=== PATIENT | female | born 1970 | race Caucasian/White ===

== ENCOUNTER 2021-10-03 10:53 | Observation (INO) ==
--- NOTE | 2021-10-03 11:12 | Emergency Department Note ---
Impression & Plan Atypical chest pain, GERD (gastroesophageal reflux disease), FREDY (obstructive sleep apnea), Hypothyroidism ED Provider Note NAME: FAUSTINO CAMILO AGE: 50 SEX: F : 1970 ARRIVES VIA: Walk-In INFORMANT: Patient, ED PROVIDER(S): Zack Cortez MD Chief Complaint: Chest pain HPI: Patient does present with chest pain which she describes as left-sided had began yesterday and was intermittent in nature. The patient states that standing up makes it feel better compared to sitting. The patient does not take anything for the pain at home. The patient states that her father of an [place] at 60. Patient denies any fevers chills or leg swelling. No prior history of DVT or PE. The patient states that it was initially intermittent but is now more constant left-sided with radiation to left upper extremity. The patient has not had any associated nausea. The patient does not believe she has had necessarily exertional symptoms. Patient does state that she is typically sweaty all the time so unsure as whether or not she has been diaphoretic. Patient denies any numbness tingling or focal weakness. The patient denies any trauma to the chest. Patient is vaccinated for COVID-19 ROS: See HPI for pertinent positives and negatives. A total of 10 systems were reviewed and otherwise negative. Past medical history: See below Surgical history: See below Social history: See below Physical Exam: GENERAL: NAD, wearing a mask, non-toxic. EYE EXAM: Normal conjunctiva. PERRL, no anisocoria and EOM's grossly intact w/o pain. OROPHARYNX: Moist mucus membranes. Grossly normal dentition. NECK: Supple, no nuchal rigidity, no adenopathy, non-tender. No signs of meningismus. LUNGS: Clear to auscultation. Normal chest wall mechanics. HEART: NSR, no MRG. ABDOMEN: Abdomen soft, non-tender, normo-active bowel sounds, no masses, no rebound or guarding. BACK: No CVA TTP. SKIN: No rashes and no bruising. UPPER EXTREMITIES: Upper extremities are grossly normal. LOWER EXTREMITIES: Grossly normal, no edema. NEURO EXAM: A&O x3, cranial nerves II-XII grossly intact, normal speech, moves all 4 extremities on command w/o issue. Differential diagnoses: Cardiac ischemia, aortic dissection, pulmonary embolism, pneumothorax, pneumonia, pericarditis, myocarditis, esophageal rupture, GERD, cholecystitis, pancreatitis, musculoskeletal, as well as other pathologies. Course: Patient was seen and evaluated the bedside. Full history physical exam was performed. EKG interpreted by me Normal sinus rhythm, rate 95, normal intervals, normal axis, T wave version in V2 not in contiguous leads. No obvious ST elevations. Imaging Studies: See Below Cardiac monitoring: An order was placed for continuous cardiac monitoring. The monitor shows a rate of 92 with sinus rhythm. MDM: Patient does present due to concern for atypical chest pain. The patient does have risk factors given her family as well as obesity. Patient's history is somewhat concerning as well. The patient did have blood work completed along with EKG troponin chest x-ray. EKG without signs of acute STEMI. Troponin is not detectable. Patient did have resolution of her chest pain with nitro and aspirin. The patient did receive 3 nitro. Given this I do believe the patient would benefit from further evaluation treatment and observation. I did speak with the on-call hospitalist and a Schreck[place] and the patient was admitted by Dr. Robles. Past Med/Surg History Medical History Depression Family history of heart disease GERD (gastroesophageal reflux disease) Hypothyroidism Hypothyroidism (acquired) FREDY (obstructive sleep apnea) Surgical History History of hysterectomy Family History Father Coronary heart disease Fatal [place] age 60 Grandfather (Paternal) Coronary heart disease Grandmother (Maternal) Coronary heart disease Social History Smoking Status: Former smoker Smoking End Date: smoked couple cigarettes daily x 5 years. Quit 15 years ago; Hx Alcohol Use: No Hx Substance Use: No Feels Safe at Home: Yes Immunizations: Vaccinated for COVID-19 Allergies Allergies Allergy/AdvReac Type Severity Reaction Status Date / Time morphine AdvReac Severe GI SYMPTOMS Verified 10/03/21 11:29 Home Meds Home Medications Medication Instructions Recorded Confirmed ascorbic acid (vitamin C) 500 mg 500 mg PO DAILY 10/03/21 10/03/21 tablet (Vitamin C) bupropion HCl 150 mg 24 hr tablet, 150 mg PO DAILY 10/03/21 10/03/21 extended release bupropion HCl 300 mg 24 hr tablet, 300 mg PO DAILY 10/03/21 10/03/21 extended release cetirizine 10 mg tablet (Zyrtec) 10 mg PO DAILY 10/03/21 10/03/21 cholecalciferol (vitamin D3) 25 1,000 mcg PO DAILY 10/03/21 10/03/21 mcg (1,000 unit) capsule (Vitamin D3) lansoprazole 30 mg capsule,delayed 30 mg PO PM 10/03/21 10/03/21 release levothyroxine 175 mcg tablet 175 mcg PO DAILY 10/03/21 10/03/21 (Levoxyl) [id number]-Ca carb-vit K 1 tab PO DAILY 10/03/21 10/03/21 18 mg iron-400 mcg-500 mg tablet Results & Data (ED) Vital Signs Vital Signs - 24 hr 10/03/21 10:54 10/03/21 12:55 10/03/21 12:58 Temperature 36.3 C L Temperature Source Temporal Artery Scan Pulse Rate 99 H 82 Respiratory Rate 20 22 Respiratory Effort / Characteristics Non-Labored Spontaneous Respiratory Depth Normal Blood Pressure 178/118 H Blood Pressure Mean 138 Blood Pressure Position Sitting Pulse Oximetry 98 Oxygen Delivery Method Room Air Room Air Sepsis Recent Fever Within 48 Hours No Sepsis New/Unexplained Change in Mental Status No Sepsis Action Taken by Nursing No Action Required 10/03/21 13:00 10/03/21 13:30 10/03/21 14:00 Temperature Temperature Source Pulse Rate 77 75 84 Respiratory Rate 20 18 23 Respiratory Effort / Characteristics Respiratory Depth Blood Pressure 115/74 130/83 Blood Pressure Mean 87 98 Blood Pressure Position Pulse Oximetry 97 Oxygen Delivery Method Sepsis Recent Fever Within 48 Hours Sepsis New/Unexplained Change in Mental Status Sepsis Action Taken by Shelter Medications Current Medication List: was personally reviewed by me Laboratory Data Attestation: I reviewed the patient's lab results. Result diagrams: 10/03/21 12:36 10/03/21 12:36 Lab Results 10/03/21 10/03/21 10/03/21 Range/Units 12:36 12:36 12:36 WBC 7.12 (4.8-10.8) K/uL RBC 4.63 (4.2-5.4) M/uL Hgb 14.4 (12.0-16.0) g/dL Hct 39.6 (37-47) % MCV 85.5 (80-100) fL MCH 31.1 (25-34) pg MCHC 36.4 H (32-36) g/dL RDW Std Deviation 38.8 (36.4-46.3) fL RDW Coeff of Naty 12.4 (11.5-14.5) % Plt Count 334 (130-400) K/uL MPV 10.0 (7.4-10.4) fL Immature Gran % (Auto) 0.1 % Neut % (Auto) 51.5 % Lymph % (Auto) 37.1 % [place] % (Auto) 7.2 % Eos % (Auto) 3.5 % Baso % (Auto) 0.6 % Neut # (Auto) 3.67 (1.4-6.5) K/uL Lymph # (Auto) 2.64 (1.2-3.4) K/uL [place] # (Auto) 0.51 (0.11-0.59) K/uL Eos # (Auto) 0.25 (0-0.5) K/uL Baso # (Auto) 0.04 (0-0.2) K/uL Immature Gran # (Auto) 0.01 (0.00-0.02) K/uL D-Dimer < 190 (0-500) ug/L FEU Sodium 141 (136-145) mmol/L Potassium 3.6 (3.5-5.1) mmol/L Chloride 109 H (98-107) mmol/L Carbon Dioxide 26 (21-32) mmol/L Anion Gap 6.0 (3-11) BUN 10 (7-18) mg/dl Creatinine 0.60 (0.6-1.2) mg/dl Est Cr Clr Drug Dosing 128.1 ml/min Est GFR ( Amer) 123.2 ml/min Est GFR (Non-Af Amer) 106.3 ml/min BUN/Creatinine Ratio 16.5 (10-20) Glucose 84 (70-99) mg/dl Calcium 9.2 (8.5-10.1) mg/dl Total Bilirubin 0.3 (0.2-1) mg/dl AST 18 (15-37) U/L ALT 45 (12-78) U/L Alkaline Phosphatase 127 H (45-117) U/L Troponin I < 0.015 (0-0.045) ng/ml Total Protein 7.9 (6.4-8.2) gm/dl Albumin 3.8 (3.4-5.0) gm/dl Globulin 4.1 H (2.5-4.0) gm/dl Albumin/Globulin Ratio 0.9 (0.9-2) Lipase 130 (73-393) U/L SARS-CoV-2, RNA, NAAT (NEGATIVE) 10/03/21 Range/Units 13:40 WBC (4.8-10.8) K/uL RBC (4.2-5.4) M/uL Hgb (12.0-16.0) g/dL Hct (37-47) % MCV (80-100) fL MCH (25-34) pg MCHC (32-36) g/dL RDW Std Deviation (36.4-46.3) fL RDW Coeff of Naty (11.5-14.5) % Plt Count (130-400) K/uL MPV (7.4-10.4) fL Immature Gran % (Auto) % Neut % (Auto) % Lymph % (Auto) % [place] % (Auto) % Eos % (Auto) % Baso % (Auto) % Neut # (Auto) (1.4-6.5) K/uL Lymph # (Auto) (1.2-3.4) K/uL [place] # (Auto) (0.11-0.59) K/uL Eos # (Auto) (0-0.5) K/uL Baso # (Auto) (0-0.2) K/uL Immature Gran # (Auto) (0.00-0.02) K/uL D-Dimer (0-500) ug/L FEU Sodium (136-145) mmol/L Potassium (3.5-5.1) mmol/L Chloride (98-107) mmol/L Carbon Dioxide (21-32) mmol/L Anion Gap (3-11) BUN (7-18) mg/dl Creatinine (0.6-1.2) mg/dl Est Cr Clr Drug Dosing ml/min Est GFR ( Amer) ml/min Est GFR (Non-Af Amer) ml/min BUN/Creatinine Ratio (10-20) Glucose (70-99) mg/dl Calcium (8.5-10.1) mg/dl Total Bilirubin (0.2-1) mg/dl AST (15-37) U/L ALT (12-78) U/L Alkaline Phosphatase (45-117) U/L Troponin I (0-0.045) ng/ml Total Protein (6.4-8.2) gm/dl Albumin (3.4-5.0) gm/dl Globulin (2.5-4.0) gm/dl Albumin/Globulin Ratio (0.9-2) Lipase (73-393) U/L SARS-CoV-2, RNA, NAAT NEGATIVE (NEGATIVE) Administered Medications Nitroglycerin (Nitroglycerin Sl 0.4 Mg/Tab Tab) 0.4 mg SL UD PRN PRN Reason: Chest Pain Stop: 11/02/21 11:31 Last Admin: 10/03/21 12:43 Dose: 0.4 mg Documented by: [id number] Discontinued Medications Acetaminophen (Acetaminophen 500 Mg Tab) 1,000 mg PO NOW STA Stop: 10/03/21 11:33 Last Admin: 10/03/21 12:42 Dose: 1,000 mg Documented by: [id number] Aspirin (Aspirin Chew 324 Mg) 324 mg PO NOW STA Stop: 10/03/21 11:33 Last Admin: 10/03/21 12:42 Dose: 324 mg Documented by: [id number] Sodium Chloride (Nss) 500 mls @ 999 mls/hr IV .Q31M STA Stop: 10/03/21 12:02 Last Infusion: 10/03/21 15:07 Dose: 0 mls/hr Documented by: [id number] Admin: 10/03/21 12:42 Dose: 999 mls/hr Documented by: [id number] Nitroglycerin (Nitroglycerin Sl 0.4 Mg/Tab Tab) 0.4 mg SL NOW STA Stop: 10/03/21 11:33 Last Admin: 10/03/21 12:42 Dose: 0.4 mg Documented by: [id number] Imaging Data Radiologist's Impression: Chest X-Ray 10/03/21 11:32 SINGLE VIEW CHEST CLINICAL HISTORY: Atypical chest pain. FINDINGS: An AP, portable, upright chest radiograph is obtained. No prior studies are available for comparison at the time of dictation. A hiatal hernia is suspected. The cardiomediastinal silhouette is unremarkable. The lungs and pleural spaces are clear. No pneumothorax is seen. The bony thorax is grossly intact. IMPRESSION: No active disease in the chest. ACT 112: Negative or not required by law. Electronically signed by: Varun Garnica M.D. 10/03/2021 12:00 PM Discharge Plan Visit Data Chief Complaint: Shortness of Breath/Dyspnea Stated Complaint: CHEST DISCOMFORT/L ARM DISCOMFORT/SOB ED Provider: Zack Cortez Discharge Problem: Atypical chest pain, GERD (gastroesophageal reflux disease), FREDY (obstructive sleep apnea), Hypothyroidism Patient Disposition: Admitted As Inpatient Forms Stand Alone Forms: [facility] Prescriptions Prescriptions: No Action levothyroxine [Levoxyl] 175 mcg tablet 175 mcg PO DAILY RF: 0 ascorbic acid (vitamin C) [Vitamin C] 500 mg Tablet 500 mg PO DAILY RF: 0 lansoprazole 30 mg capsule,delayed release(DR/EC) 30 mg PO PM RF: 0 cholecalciferol (vitamin D3) [Vitamin D3] 25 mcg (1,000 unit) Capsule 1,000 mcg PO DAILY RF: 0 bupropion HCl 300 mg tablet extended release 24 hr 300 mg PO DAILY RF: 0 Women's Multivitamin 18 mg iron-400 mcg-500 mg Tablet 1 tab PO DAILY RF: 0 cetirizine [Zyrtec] 10 mg Tablet 10 mg PO DAILY RF: 0 bupropion HCl 150 mg tablet extended release 24 hr 150 mg PO DAILY RF: 0 Referrals Referrals: PCP,NO [Physician] -
[2021-10-03] MEDS ORDERED: ASPIRIN CHEW 324 MG PO STA (11:32)
[2021-10-03] MEDS ORDERED: ACETAMINOPHEN 500 MG TAB PO STA (11:32)
[2021-10-03] MEDS ORDERED: SODIUM CHLORIDE 0.9% 500 ML IV STA (11:32)
[2021-10-03] MEDS ORDERED: NITROGLYCERIN SL 0.4 MG/TAB TAB SL PRN ×2 (11:32→18:01)
[2021-10-03] MEDS ORDERED: NITROGLYCERIN SL 0.4 MG/TAB TAB SL STA (11:32)
--- NOTE | 2021-10-03 12:01 | XRay Report ---
SINGLE VIEW CHEST CLINICAL HISTORY: Atypical chest pain. FINDINGS: An AP, portable, upright chest radiograph is obtained. No prior studies are available for c omparison at the time of dictation. A hiatal hernia is suspected. The cardiomediastinal silhouette is unremarkable. The lungs and pleural spaces are clear. No pneumothorax is seen. The bony thorax is gr ossly intact. IMPRESSION: No active disease in the chest. ACT 112: Negative or not required by law. Electronically signed by: Varun Garnica M.D. 10/03/2021 12:00 PM
[2021-10-03 12:47] LABS: Basophils # (auto) 0.04 K/uL (0-0.2); Basophils % (auto) 0.6 %; Eosinophils # (auto) 0.25 K/uL (0-0.5); Eosinophils % (auto) 3.5 %; Hematocrit (blood only) 39.6 % (37-47); Hemoglobin 14.4 g/dL (12.0-16.0); Immature Granulocytes # (auto) 0.01 K/uL (0.00-0.02); Immature Granulocytes % (auto) 0.1 %; Lymphocytes # (auto) 2.64 K/uL (1.2-3.4); Lymphocytes % (auto) 37.1 %; Mean Corpuscular Hemoglobin 31.1 pg (25-34); Mean Corpuscular Hgb Conc 36.4 g/dL (32-36); Mean Corpuscular Volume 85.5 fL (80-100); Monocytes # (auto) 0.51 K/uL (0.11-0.59); Monocytes % (auto) 7.2 %; Neutrophils # (auto) 3.67 K/uL (1.4-6.5); Neutrophils % (auto) 51.5 %; Platelet Count 334 K/uL (130-400); RDW Coefficient of Variation 12.4 % (11.5-14.5); RDW Standard Deviation 38.8 fL (36.4-46.3); Red Blood Count 4.63 M/uL (4.2-5.4); White Blood Count 7.12 K/uL (4.8-10.8)
[2021-10-03 13:05] LABS: D Dimer < 190 ug/L FEU (0-500)
[2021-10-03 13:13] LABS: Alanine Aminotransferase 45 U/L (12-78); Albumin Level 3.8 gm/dl (3.4-5.0); Aspartate Aminotransferase 18 U/L (15-37); BUN Creatinine Ratio 16.5 (10-20); Blood Urea Nitrogen 10 mg/dl (7-18); Calcium 9.2 mg/dl (8.5-10.1); Carbon Dioxide 26 mmol/L (21-32); Chloride 109 mmol/L (98-107); Creatinine Clr Calc Pharmacy 128.1 ml/min; Est GFR (African American) 123.2 ml/min; Est GFR (Non-African American) 106.3 ml/min; Glucose 84 mg/dl (70-99); Lipase 130 U/L (73-393); Potassium 3.6 mmol/L (3.5-5.1); Sodium 141 mmol/L (136-145)
[2021-10-03 13:18] LABS: Albumin Globulin Ratio 0.9 (0.9-2); Alkaline Phosphatase 127 U/L (45-117); Bilirubin,Total 0.3 mg/dl (0.2-1); Globulin 4.1 gm/dl (2.5-4.0); Total Protein 7.9 gm/dl (6.4-8.2); Troponin I < 0.015 ng/ml (0-0.045)
--- NOTE | 2021-10-03 14:19 | Electrocardiogram Report ---
Test Reason : Blood Pressure : / mmHG Vent. Rate : 095 BPM Atrial Rate : 095 BPM P-R Int : 150 ms QRS Dur : 096 ms QT Int : 370 ms P-R-T Axes : 026 058 030 degrees QTc Int : 464 ms Normal sinus rhythm Nonspecific T wave abnormality Incomplete right bundle branch block Prolonged QT Abnormal ECG When compared with ECG of 11-JAN-2016 09:58, No significant change was found Confirmed by Herson Fleming ([id number]) on 10/03/2021 2:18:51 PM Referred By: REFERRED SELF Confirmed By:Sergey Fleming
--- NOTE | 2021-10-03 14:21 | History & Physical Report ---
Date of Service October 03, 2021 Assessment & Plan (1) Chest pain: Plan: Patient is 50-year-old female with PMH of FREDY, GERD, depression, hypothyroidism presented to ER with C/O CP. Last night she started with chest tightness. This morning she woke up with chest tightness and discomfort to left-sided chest radiating to left arm with associated dizziness. In ER patient afebrile, P: 99, R: 20, BP 178/118, 98% on room air, no leukocytosis, negative D-dimer, negative initial troponin. Chest x-ray unremarkable. EKG: Sinus rhythm, T wave inversion in septal leads, T wave flattening in anterior leads. Prior EKG from 2016 with T wave inversion septal leads. CHEST PAIN R/O ACS. Risk factors: FH. DDX: hypertensive emergency In ER Was given 3 sublingual nitroglycerin with resolution of chest discomfort. Given 324mg aspirin Repeat BP down to 129/87. Monitor Repeat EKG in am Will trend troponin Echo Lipid panel in am Start daily aspirin Nitro prn CP and repeat EKG for CP NPO midnight Cardiology consult (2) FREDY (obstructive sleep apnea): Plan: CPAP HS (3) Depression: Plan: Continue bupropion (4) Hypothyroidism: Plan: Continue levothyroxine TSH in am (5) GERD (gastroesophageal reflux disease): Plan: Continue PPI DVT Prophylaxis SCDs Full Code Follows with Dr Cuba for routine care Pt was seen and care coordinated with Dr Robles. See addendum History of Present Illness Chief Complaint: Chest pain Primary Care Provider: Ansley Gaytan PA-C Patient is 50-year-old female with PMH of FREDY, GERD, depression, hypothyroidism presented to ER with complaint of chest pain. Patient states past month has been having intermittent chest tightness that resolves in a few minutes. It can occur with with sitting or ambulation. She reports last night she started with chest tightness and started with discomfort to left side chest that she thought may be GERD. This morning she woke up with chest tightness and discomfort to left-side chest radiating to left arm with associated dizziness. She denies shortness of breath, diaphoresis, palpitations. Denies fever/chills, diaphoresis, N/V/D/C, MANZANARES, syncope, vision changes, neck pain, orthopnea, cough, sore throat, choking, otalgia, rhinorrhea, abdominal pain, paresthesias, weakness, extremity weakness, extremity edema, rashes, urinary symptoms. Family history: Father fatal [place] age 60, paternal grandfather history [place], maternal grandmother history [place] In ER patient afebrile, P: 99, R: 20, BP 178/118, 98% on room air, no leukocytosis, negative D-dimer, negative initial troponin. Chest x-ray unremarkable. EKG: Sinus rhythm, T wave inversion in septal leads, T wave flattening in anterior leads. Was given 3 sublingual nitroglycerin with resolution of chest discomfort. Allergies Allergy/AdvReac Type Severity Reaction Status Date / Time morphine AdvReac Severe GI SYMPTOMS Verified 10/03/21 11:29 Home Medications Medication Instructions Recorded Confirmed Type ascorbic acid (vitamin C) 500 mg 500 mg PO DAILY 10/03/21 10/03/21 History tablet (Vitamin C) bupropion HCl 150 mg 24 hr tablet, 150 mg PO DAILY 10/03/21 10/03/21 History extended release bupropion HCl 300 mg 24 hr tablet, 300 mg PO DAILY 10/03/21 10/03/21 History extended release cetirizine 10 mg tablet (Zyrtec) 10 mg PO DAILY 10/03/21 10/03/21 History cholecalciferol (vitamin D3) 25 1,000 mcg PO DAILY 10/03/21 10/03/21 History mcg (1,000 unit) capsule (Vitamin D3) lansoprazole 30 mg capsule,delayed 30 mg PO PM 10/03/21 10/03/21 History release levothyroxine 175 mcg tablet 175 mcg PO DAILY 10/03/21 10/03/21 History (Levoxyl) renzxwsv-ekx-dcgd-FA-Ca carb-vit K 1 tab PO DAILY 10/03/21 10/03/21 History 18 mg iron-400 mcg-500 mg tablet Past Med/Surg History Medical History Depression Family history of heart disease GERD (gastroesophageal reflux disease) Hypothyroidism Hypothyroidism (acquired) FREDY (obstructive sleep apnea) Surgical History History of hysterectomy Family History Father Coronary heart disease Fatal [place] age 60 Grandfather (Paternal) Coronary heart disease Grandmother (Maternal) Coronary heart disease Social History Smoking Status: Never smoker Smoking End Date: smoked couple cigarettes daily x 5 years. Quit 15 years ago; Hx Alcohol Use: No Hx Substance Use: No Communication Ability: Effective Beliefs That Will Affect Care: None Current Living Situation: Spouse Feels Safe at Home: Yes Safety Concerns: Feels Safe At This Time Review of Systems Review of Systems: All systems reviewed & are unremarkable except as noted in HPI & below Physical Exam Physical Exam: General: no distress, obese Head: normocephalic, atraumatic Eyes: PERRL, EOM's intact, conjunctiva non-injected, anicteric ENT: normal inspection external ears, nose, mucous membranes moist Neck: supple, trachea midline Lungs: clear, no respiratory distress, no wheezing/rhonchi/rales CV: RRR, no murmur, no pretibial edema Abd: normal BS, soft, non-tender Ext: no cyanosis, no calf tenderness Neuro: A&O x 3, no focal deficits noted, normal affect Skin: warm, dry Results & Data Results & Data ([facility]) Vital Signs (Past 12 Hours) Vital Signs Temp Pulse Resp BP Pulse Ox 10/03/21 10:54 36.3 C L 99 H 20 178/118 H 98 Laboratory Results Short CBC 10/03/21 Range/Units 12:36 WBC 7.12 (4.8-10.8) K/uL Hgb 14.4 (12.0-16.0) g/dL Hct 39.6 (37-47) % Plt Count 334 (130-400) K/uL BMP 10/03/21 12:36 Sodium 141 Potassium 3.6 Chloride 109 H Carbon Dioxide 26 BUN 10 Creatinine 0.60 Glucose 84 Calcium 9.2 Cardiac Enzymes 10/03/21 Range/Units 12:36 Troponin I < 0.015 (0-0.045) ng/ml Liver Function 10/03/21 Range/Units 12:36 Total Bilirubin 0.3 (0.2-1) mg/dl AST 18 (15-37) U/L ALT 45 (12-78) U/L Alkaline Phosphatase 127 H (45-117) U/L Albumin 3.8 (3.4-5.0) gm/dl Diagnostic Findings Chest X-Ray 10/03/21 11:32 SINGLE VIEW CHEST CLINICAL HISTORY: Atypical chest pain. FINDINGS: An AP, portable, upright chest radiograph is obtained. No prior studies are available for comparison at the time of dictation. A hiatal hernia is suspected. The cardiomediastinal silhouette is unremarkable. The lungs and pleural spaces are clear. No pneumothorax is seen. The bony thorax is grossly intact. IMPRESSION: No active disease in the chest. ACT 112: Negative or not required by law. Electronically signed by: Varun Garnica M.D. 10/03/2021 12:00 PM Supervising Physician Co-Signing Physician Notes Patient is a 50-year-old female with history of hypothyroidism and other medical problems presents with history of chest pain radiating to left upper extremity. Chest pain resolved with nitroglycerin while in ED. She reports associated shortness of breath, diaphoresis and palpitations. Please review HPI for complete details of presentation. Initial troponin negative. EKG showed nonspecific T wave abnormality, incomplete right bundle branch block. On exam patient is obese, no apparent distress, normocephalic atraumatic, lungs are clear to auscultation, normal breath sounds, S1-S2, no murmur, no pedal edema, abdomen soft, nontender, normal bowel sounds, alert, awake, oriented, grossly no focal deficits. Patient is admitted for management of chest pain rule out ACS. Blood pressure elevated while in ED which improved later. Will obtain blood panel, echo, trend cardiac enzymes and repeat EKG in the morning. Will consult cardiology for further input. I personally reviewed the record. Patient is interviewed and examined at bedside. Patient's care is coordinated with Sara Triana PA-C. Please refer to the documentation above for details of patient's presentation and for discussion of other issues.
[2021-10-03] MEDS ORDERED: ACETAMINOPHEN 325 MG TAB PO PRN (18:01)
[2021-10-03] MEDS ORDERED: PANTOprazole 40 MG TAB PO SCH (21:00)
[2021-10-04 07:35] LABS: Hematocrit (blood only) 39.3 % (37-47); Hemoglobin 13.8 g/dL (12.0-16.0); Mean Corpuscular Hemoglobin 30.4 pg (25-34); Mean Corpuscular Hgb Conc 35.1 g/dL (32-36); Mean Corpuscular Volume 86.6 fL (80-100); Mean Platelet Volume 10.1 fL (7.4-10.4); Platelet Count 302 K/uL (130-400); RDW Coefficient of Variation 12.5 % (11.5-14.5); RDW Standard Deviation 39.7 fL (36.4-46.3); Red Blood Count 4.54 M/uL (4.2-5.4); White Blood Count 6.73 K/uL (4.8-10.8)
[2021-10-04 08:10] LABS: BUN Creatinine Ratio 18.4 (10-20); Calcium 8.9 mg/dl (8.5-10.1); Creatinine Clr Calc Pharmacy 125.8 ml/min; Est GFR (African American) 122.5 ml/min; Est GFR (Non-African American) 105.7 ml/min; Potassium 3.6 mmol/L (3.5-5.1)
[2021-10-04 08:20] LABS: Thyroid Stimulating Hormone 0.011 uIu/ml (0.300-4.500)
--- NOTE | 2021-10-04 08:38 | Cardiology Consultation ---
Date of Consultation October 04, 2021 Assessment & Plan (1) Atypical chest pain: (2) FREDY (obstructive sleep apnea): (3) GERD (gastroesophageal reflux disease): (4) Family history of heart disease: (5) Hypertension: Patient admitted for chest pain radiating to her left arm, resolving with SL nitro in the ER and concerning for angina. Her Blood pressure was significantly elevated on arrival, but trended down without intervention. Currently well controlled this morning. EKG on arrival demonstrated mild flattening of ST/T wave in inferior leads but no acute ST/T wave elevation or depression. Cardiac enzymes negative x3 She has remained symptom free over night and into this morning. She is concerned with her family history and father passing away age 60 of sudden VT. No prior cardiac testing or ischemic work up. Recommend proceeding with exercise stress echo this morning to r/o inducible ischemia. Her resting echo demonstrated normal LVEF without wall motion abnormalities. Further recommendations pending review of exercise stress echo. Case discussed with Dr. Stanley Supervising Physician Co-Signing Physician Notes Supervising Physician Attestation: I have personally performed a history and physical examination on the patient. I agree with the physician residential living assistant's findings and plan as documented with the following additions. Subjective: Patient feeling well at the time of my assessment. Patient seen prior to, during, and post exercise stress echocardiogram. Exam: Regular rhythm, no murmurs Data: Resting echo revealed borderline concentric left ventricular hypertrophy, grade 1 diastolic dysfunction, normal resting wall motion, normal LVEF. Stress echocardiogram was negative for inducible ischemia having exercised into the third stage of a Yosvany protocol. Borderline hypertensive response noted. Assessment and Plan: Chest discomfort with negative EKG, negative serial troponin levels, nonischemic stress echocardiogram Family history of coronary heart disease Elevated blood pressure without diagnosis of hypertension -The patient's systolic blood pressure was in the 170s on initial presentation. She received 2 doses of nitroglycerin with palliation of chest discomfort and improvement in her blood pressure. Her stress test reassuring, however borderline hypertensive response was noted. Her blood pressure first thing this morning was 123/75. Per review of her outpatient chart, historically her blood pressure has been well controlled. Her most recent lipid panel took place in November 2020 as an outpatient with LDL cholesterol 105 mg/dL at that time. -I believe the stress echocardiogram is reassuring. Recommend ongoing heart healthy lifestyle, risk factor modification. -Based on her recent and historical blood pressures, I am inclined to continue to watch things without adding an antihypertensive at present. Future considerations include perhaps adding an angiotensin receptor jagdeep or amlodipine. -Recommend follow-up with primary care. -Patient stable for discharge from a cardiac perspective. Farrukh Stanley, DO History of Present Illness Reason for Consultation: Chest pain Requesting Physician: Dr. Robles Attending Physician: Dr. Mays History of Present Illness Patient is a 50 year old female with history of FREDY, GERD, hypothyroidism, who presents to [facility] with complaints of chest pain. Friday night late patient noted intermittent sharp/stabbing chest pain under her left breast. Symptoms resolved and she went to bed in normal state of health. Friday she woke up and felt fatigued, but denied any chest pain. She reports her daughter forgot her lunch and she rushed it to the school and returned home. Upon returning home, patient felt substernal chest tightness, across her chest, described as a heaviness or "someone sitting on my chest". Symptoms radiated down her left arm. She decided to take a shower and relax. After showering, her symptoms persisted and she felt SOB, like she had just "run a marathon" but didn't do anything strenuous. She contacted her and they came to the ER for evaluation. Upon arrival in ER, her BP was significantly elevated. She denied history of elevated BP in the past and does not take any antihypertensive therapy. EKG in the ER demonstrated mild T wave flattening in inferior and septal leaves, but no ST depression or elevation or significant change from prior EKG in 2019. She was given SL nitro and symptoms improved after 2 doses. Her cardiac enzymes have been unremarkable x3. BP trended down upon admission as well. Other labs un remarkable, other than low TSH, consistent with her history of thyroid disorders. At time of consult, patient resting out of bed comfortably. No recurrent chest pain since admission. BP at baseline this morning. She denies acute complaints but is concerned with her symptoms yesterday. This was the first time she has experienced any chest pain that was significant. She denies recent chest pain wi th exertion or changes to her functional capacity. She remains active on a regular basis. 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 No known cardiac history. No prior echo or stress test. She reports her father had VT and suddenly age 60's. Allergies Allergy/AdvReac Type Severity Reaction Status Date / Time morphine AdvReac Severe GI SYMPTOMS Verified 10/03/21 11:29 Home Medications Medication Instructions Recorded Confirmed Type ascorbic acid (vitamin C) 500 mg 500 mg PO DAILY 10/03/21 10/03/21 History tablet (Vitamin C) bupropion HCl 150 mg 24 hr tablet, 150 mg PO DAILY 10/03/21 10/03/21 History extended release bupropion HCl 300 mg 24 hr tablet, 300 mg PO DAILY 10/03/21 10/03/21 History extended release cetirizine 10 mg tablet (Zyrtec) 10 mg PO DAILY 10/03/21 10/03/21 History cholecalciferol (vitamin D3) 25 1,000 mcg PO DAILY 10/03/21 10/03/21 History mcg (1,000 unit) capsule (Vitamin D3) lansoprazole 30 mg capsule,delayed 30 mg PO PM 10/03/21 10/03/21 History release levothyroxine 175 mcg tablet 175 mcg PO DAILY 10/03/21 10/03/21 History (Levoxyl) [id number]-FA-Ca carb-vit K 1 tab PO DAILY 10/03/21 10/03/21 History 18 mg iron-400 mcg-500 mg tablet Patient History Medical History (Updated 10/04/21 @ 10:30 by Thelma Bustillo PA-C) Depression Family history of heart disease GERD (gastroesophageal reflux disease) Hypothyroidism Hypothyroidism (acquired) FREDY (obstructive sleep apnea) Surgical History History of hysterectomy Family History Father Coronary heart disease Fatal VT age 60 Grandfather (Paternal) Coronary heart disease Grandmother (Maternal) Coronary heart disease Social History Smoking Status: Never smoker Smoking End Date: smoked couple cigarettes daily x 5 years. Quit 15 years ago; Hx Alcohol Use: No Hx Substance Use: No Communication Ability: Effective Beliefs That Will Affect Care: None Current Living Situation: Spouse Feels Safe at Home: Yes Safety Concerns: Feels Safe At This Time Assistive Devices: None Review of Systems Review of Systems: All systems reviewed & are unremarkable except as noted in HPI & below Physical Exam Constitutional: WD/WN, vitals as above well nourished and + obese; no acute distress Eyes: PERRL, conjunctivae normal, anicteric sclerae Neck: trachea midline, no thyromegaly Respiratory: normal respiratory effort, lungs clear to auscultation Cardiovascular: RRR, no murmur, no edema Gastrointestinal (Abdomen): normal bowel sounds, soft, nontender, no hepatosplenomegaly Musculoskeletal: no cyanosis or clubbing, extremities motor strength 5/5 Skin: no rashes, warm and dry Neurologic: PERRL, EOMI, accommodation nl, no face palsy, no dysarthria Psychiatric: A+Ox3, euthymic affect Results & Data ([facility]) Vital Signs (Past 12 Hours) Vital Signs Temp Pulse Pulse Resp BP Pulse Ox 10/04/21 07:10 36.8 C 73 18 123/75 96 10/04/21 03:14 36.6 C 80 18 117/60 95 10/04/21 01:54 84 10/03/21 23:45 17 94 10/03/21 22:57 36.6 C 82 18 134/74 95 10/03/21 20:42 36.4 C L 90 18 130/71 96 Laboratory Results 10/04/21 10/04/21 10/04/21 Range/Units 06:44 06:44 00:56 WBC 6.73 (4.8-10.8) K/uL RBC 4.54 (4.2-5.4) M/uL Hgb 13.8 (12.0-16.0) g/dL Hct 39.3 (37-47) % MCV 86.6 (80-100) fL MCH 30.4 (25-34) pg MCHC 35.1 (32-36) g/dL RDW Std Deviation 39.7 (36.4-46.3) fL RDW Coeff of Naty 12.5 (11.5-14.5) % Plt Count 302 (130-400) K/uL MPV 10.1 (7.4-10.4) fL Immature Gran % (Auto) % Neut % (Auto) % Lymph % (Auto) % [place] % (Auto) % Eos % (Auto) % Baso % (Auto) % Neut # (Auto) (1.4-6.5) K/uL Lymph # (Auto) (1.2-3.4) K/uL [place] # (Auto) (0.11-0.59) K/uL Eos # (Auto) (0-0.5) K/uL Baso # (Auto) (0-0.2) K/uL Immature Gran # (Auto) (0.00-0.02) K/uL D-Dimer (0-500) ug/L FEU Sodium 143 (136-145) mmol/L Potassium 3.6 (3.5-5.1) mmol/L Chloride 109 H (98-107) mmol/L Carbon Dioxide 25 (21-32) mmol/L Anion Gap 9.0 (3-11) BUN 11 (7-18) mg/dl Creatinine 0.61 (0.6-1.2) mg/dl Est Cr Clr Drug Dosing 125.8 ml/min Est GFR ( Amer) 122.5 ml/min Est GFR (Non-Af Amer) 105.7 ml/min BUN/Creatinine Ratio 18.4 (10-20) Glucose 91 (70-99) mg/dl Calcium 8.9 (8.5-10.1) mg/dl Total Bilirubin (0.2-1) mg/dl AST (15-37) U/L ALT (12-78) U/L Alkaline Phosphatase (45-117) U/L Troponin I < 0.015 (0-0.045) ng/ml Total Protein (6.4-8.2) gm/dl Albumin (3.4-5.0) gm/dl Globulin (2.5-4.0) gm/dl Albumin/Globulin Ratio (0.9-2) Triglycerides 102 (0-150) mg/dl Cholesterol 153 (0-200) mg/dl LDL Cholesterol, Calc 84 mg/dl VLDL Cholesterol, Calc 20 mg/dl HDL Cholesterol 49 mg/dl Cholesterol/HDL Ratio 3 Lipase (73-393) U/L TSH 0.011 L (0.300-4.500) uIu/ml SARS-CoV-2, RNA, NAAT (NEGATIVE) 10/03/21 10/03/21 10/03/21 Range/Units 19:05 13:40 12:36 WBC (4.8-10.8) K/uL RBC (4.2-5.4) M/uL Hgb (12.0-16.0) g/dL Hct (37-47) % MCV (80-100) fL MCH (25-34) pg MCHC (32-36) g/dL RDW Std Deviation (36.4-46.3) fL RDW Coeff of Naty (11.5-14.5) % Plt Count (130-400) K/uL MPV (7.4-10.4) fL Immature Gran % (Auto) % Neut % (Auto) % Lymph % (Auto) % [place] % (Auto) % Eos % (Auto) % Baso % (Auto) % Neut # (Auto) (1.4-6.5) K/uL Lymph # (Auto) (1.2-3.4) K/uL [place] # (Auto) (0.11-0.59) K/uL Eos # (Auto) (0-0.5) K/uL Baso # (Auto) (0-0.2) K/uL Immature Gran # (Auto) (0.00-0.02) K/uL D-Dimer (0-500) ug/L FEU Sodium 141 (136-145) mmol/L Potassium 3.6 (3.5-5.1) mmol/L Chloride 109 H (98-107) mmol/L Carbon Dioxide 26 (21-32) mmol/L Anion Gap 6.0 (3-11) BUN 10 (7-18) mg/dl Creatinine 0.60 (0.6-1.2) mg/dl Est Cr Clr Drug Dosing 128.1 ml/min Est GFR ( Amer) 123.2 ml/min Est GFR (Non-Af Amer) 106.3 ml/min BUN/Creatinine Ratio 16.5 (10-20) Glucose 84 (70-99) mg/dl Calcium 9.2 (8.5-10.1) mg/dl Total Bilirubin 0.3 (0.2-1) mg/dl AST 18 (15-37) U/L ALT 45 (12-78) U/L Alkaline Phosphatase 127 H (45-117) U/L Troponin I < 0.015 < 0.015 (0-0.045) ng/ml Total Protein 7.9 (6.4-8.2) gm/dl Albumin 3.8 (3.4-5.0) gm/dl Globulin 4.1 H (2.5-4.0) gm/dl Albumin/Globulin Ratio 0.9 (0.9-2) Triglycerides (0-150) mg/dl Cholesterol (0-200) mg/dl LDL Cholesterol, Calc mg/dl VLDL Cholesterol, Calc mg/dl HDL Cholesterol mg/dl Cholesterol/HDL Ratio Lipase 130 (73-393) U/L TSH (0.300-4.500) uIu/ml SARS-CoV-2, RNA, NAAT NEGATIVE (NEGATIVE) 10/03/21 10/03/21 Range/Units 12:36 12:36 WBC 7.12 (4.8-10.8) K/uL RBC 4.63 (4.2-5.4) M/uL Hgb 14.4 (12.0-16.0) g/dL Hct 39.6 (37-47) % MCV 85.5 (80-100) fL MCH 31.1 (25-34) pg MCHC 36.4 H (32-36) g/dL RDW Std Deviation 38.8 (36.4-46.3) fL RDW Coeff of Naty 12.4 (11.5-14.5) % Plt Count 334 (130-400) K/uL MPV 10.0 (7.4-10.4) fL Immature Gran % (Auto) 0.1 % Neut % (Auto) 51.5 % Lymph % (Auto) 37.1 % [place] % (Auto) 7.2 % Eos % (Auto) 3.5 % Baso % (Auto) 0.6 % Neut # (Auto) 3.67 (1.4-6.5) K/uL Lymph # (Auto) 2.64 (1.2-3.4) K/uL [place] # (Auto) 0.51 (0.11-0.59) K/uL Eos # (Auto) 0.25 (0-0.5) K/uL Baso # (Auto) 0.04 (0-0.2) K/uL Immature Gran # (Auto) 0.01 (0.00-0.02) K/uL D-Dimer < 190 (0-500) ug/L FEU Sodium (136-145) mmol/L Potassium (3.5-5.1) mmol/L Chloride (98-107) mmol/L Carbon Dioxide (21-32) mmol/L Anion Gap (3-11) BUN (7-18) mg/dl Creatinine (0.6-1.2) mg/dl Est Cr Clr Drug Dosing ml/min Est GFR ( Amer) ml/min Est GFR (Non-Af Amer) ml/min BUN/Creatinine Ratio (10-20) Glucose (70-99) mg/dl Calcium (8.5-10.1) mg/dl Total Bilirubin (0.2-1) mg/dl AST (15-37) U/L ALT (12-78) U/L Alkaline Phosphatase (45-117) U/L Troponin I (0-0.045) ng/ml Total Protein (6.4-8.2) gm/dl Albumin (3.4-5.0) gm/dl Globulin (2.5-4.0) gm/dl Albumin/Globulin Ratio (0.9-2) Triglycerides (0-150) mg/dl Cholesterol (0-200) mg/dl LDL Cholesterol, Calc mg/dl VLDL Cholesterol, Calc mg/dl HDL Cholesterol mg/dl Cholesterol/HDL Ratio Lipase (73-393) U/L TSH (0.300-4.500) uIu/ml SARS-CoV-2, RNA, NAAT (NEGATIVE) Diagnostic Findings Telemetry reviewed - NSR without concerning arrhythmias EKG on admission: NSR with mild T wave flattening in inferior and septal leads. Repeat EKG this morning: NSR, normal EKG Chest xray on admission: IMPRESSION: No active disease in the chest. Medications Administered Current Inpatient Medications Acetaminophen (Acetaminophen 325 Mg Tab) 650 mg PO Q4H PRN PRN Reason: Pain or Fever Stop: 11/02/21 18:00 Aspirin (Aspirin 81 Mg Ectab) [facility] Stop: 11/03/21 08:59 Last Admin: 10/04/21 08:51 Dose: 81 mg Documented by: Bupropion HCl (Bupropion Xl 300 Mg Tabcr) 300 mg PO DAILY [facility] Stop: 11/03/21 08:59 Last Admin: 10/04/21 07:41 Dose: 300 mg Documented by: Bupropion HCl (Bupropion Xl 150 Mg Tabcr) 150 mg PO DAILY [facility] Stop: 11/03/21 08:59 Last Admin: 10/04/21 07:41 Dose: 150 mg Documented by: Cetirizine HCl (Cetirizine Hcl 10 Mg Tablet) 10 mg PO DAILY [facility] Stop: 11/03/21 08:59 Last Admin: 10/04/21 07:41 Dose: 10 mg Documented by: Levothyroxine Sodium (Levothyroxine Sodium 125 Mcg Tablet) 125 mcg PO DAILYBB [facility] Stop: 11/04/21 06:29 Nitroglycerin (Nitroglycerin Sl 0.4 Mg/Tab Tab) 0.4 mg SL UD PRN PRN Reason: Chest Pain Stop: 11/02/21 11:31 Last Admin: 10/03/21 12:43 Dose: 0.4 mg Documented by: Nitroglycerin (Nitroglycerin Sl 0.4 Mg/Tab Tab) 0.4 mg SL UD PRN PRN Reason: Chest Pain Stop: 11/02/21 18:00 Pantoprazole Sodium (Pantoprazole 40 Mg Tab) 40 mg PO PM [facility] Stop: 11/02/21 20:59 Last Admin: 10/03/21 20:48 Dose: 40 mg Documented by: (1) GERD (gastroesophageal reflux disease) Esophagitis presence: esophagitis presence not specified Qualified Code(s): K21.9 - Gastro-esophageal reflux disease without esophagitis
[2021-10-04] MEDS ORDERED: buPROPion XL 300 MG TABCR PO SCH (09:00)
[2021-10-04] MEDS ORDERED: LEVOTHYROXINE SODIUM 175 MCG TABLET PO SCH (09:00)
[2021-10-04] MEDS ORDERED: buPROPion XL 150 MG TABCR PO SCH (09:00)
[2021-10-04] MEDS ORDERED: ASPIRIN 81 MG ECTAB PO SCH (09:00)
[2021-10-04] MEDS ORDERED: CETIRIZINE HCL 10 MG TABLET PO SCH (09:00)
[2021-10-04 10:15] LABS: T4 Free Thyroxine 1.31 ng/dl (0.8-1.6)
--- NOTE | 2021-10-04 12:48 | Hospitalist Progress Note ---
Date of Service October 04, 2021 Assessment & Plan (1) Chest pain: Plan: Patient is 50-year-old female with PMH of FREDY, GERD, depression, hypothyroidism presented to ER with C/O CP. Last night she started with chest tightness. This morning she woke up with chest tightness and discomfort to left-sided chest radiating to left arm with associated dizziness. Chest Pain ACS ruled out --Negative troponin --Stress test nonischemic --ECHO: EF 60 to 65%. Grade 1 diastolic dysfunction. No wall motion abnormality. --CXR:No active disease in the chest. --Appreciate cardiology input -Plan is to monitor blood pressure regularly and consider discussing with primary care physician for possible need for antihypertensives if needed (2) FREDY (obstructive sleep apnea): Plan: CPAP HS (3) Depression: Plan: Continue bupropion (4) Hypothyroidism: Plan: TSH low Free T4 normal Levothyroxine dose decreased today on 150 mcg daily Advised to get repeat thyroid function test in 1 week and consider following with PCP, endocrinology for further adjustment (5) GERD (gastroesophageal reflux disease): Plan: Continue PPI DVT Prophylaxis SCDs Code Status Full Code Admission and Anticipated Discharge Date Admission Date: October 03, 2021 Subjective Patient is seen and examined at bedside Had stress test earlier today Chest pain completely resolved Denies any shortness of breath, dizziness, nausea, abdominal cramps Discussed with cardiology today Plan to be discharged home today. Review of Systems Review of Systems: All systems reviewed & are unremarkable except as noted in Subjective Physical Exam Physical Exam: Physical Exam: Vitals signs as noted above General Appearance:Obese, no apparent distress Head: normocephalic, Atraumatic Eyes: normal inspection, EOMI Neck: supple, Trachea midline Respiratory/Chest: Normal breath sounds, CTA, No accessory muscle use Cardiovascular: S1, S2, No murmur Abdomen/GI:Soft, Non tender, Bowel sounds present Extremities/Musculoskeletal:normal inspection, no edema Neurologic/Psych:AAOX3, grossly no focal neurological deficits Skin: normal color, warm Results & Data Results & Data ([facility]) Vital Signs (Past 12 Hours) Vital Signs Temp Pulse Pulse Resp BP Pulse Ox 10/04/21 10:06 84 10/04/21 07:10 36.8 C 73 18 123/75 96 10/04/21 03:14 36.6 C 80 18 117/60 95 10/04/21 01:54 84 Laboratory Results Short CBC 10/04/21 Range/Units 06:44 WBC 6.73 (4.8-10.8) K/uL Hgb 13.8 (12.0-16.0) g/dL Hct 39.3 (37-47) % Plt Count 302 (130-400) K/uL BMP 10/03/21 10/04/21 12:36 06:44 Sodium 141 143 Potassium 3.6 3.6 Chloride 109 H 109 H Carbon Dioxide 26 25 BUN 10 11 Creatinine 0.60 0.61 Glucose 84 91 Calcium 9.2 8.9 Cardiac Enzymes 10/03/21 10/03/21 10/04/21 Range/Units 12:36 19:05 00:56 Troponin I < 0.015 < 0.015 < 0.015 (0-0.045) ng/ml Liver Function 10/03/21 Range/Units 12:36 Total Bilirubin 0.3 (0.2-1) mg/dl AST 18 (15-37) U/L ALT 45 (12-78) U/L Alkaline Phosphatase 127 H (45-117) U/L Albumin 3.8 (3.4-5.0) gm/dl (1) Hypothyroidism Hypothyroidism type: unspecified Qualified Code(s): E03.9 - Hypothyroidism, unspecified (2) GERD (gastroesophageal reflux disease) Esophagitis presence: esophagitis presence not specified Qualified Code(s): K21.9 - Gastro-esophageal reflux disease without esophagitis
--- NOTE | 2021-10-04 12:59 | Discharge Summary ---
Date of Service October 04, 2021 Admission HPI Per Admitting Provider Patient is 50-year-old female with PMH of FREDY, GERD, depression, hypothyroidism presented to ER with complaint of chest pain. Patient states past month has been having intermittent chest tightness that resolves in a few minutes. It can occur with with sitting or ambulation. She reports last night she started with chest tightness and started with discomfort to left side chest that she thought may be GERD. This morning she woke up with chest tightness and discomfort to left-side chest radiating to left arm with associated dizziness. She denies shortness of breath, diaphoresis, palpitations. Denies fever/chills, diaphoresis, N/V/D/C, MANZANARES, syncope, vision changes, neck pain, orthopnea, cough, sore throat, choking, otalgia, rhinorrhea, abdominal pain, paresthesias, weakness, extremity weakness, extremity edema, rashes, urinary symptoms. Family history: Father fatal [place] age 60, paternal grandfather history [place], maternal grandmother history [place] In ER patient afebrile, P: 99, R: 20, BP 178/118, 98% on room air, no leukocytosis, negative D-dimer, negative initial troponin. Chest x-ray unremarkable. EKG: Sinus rhythm, T wave inversion in septal leads, T wave flattening in anterior leads. Was given 3 sublingual nitroglycerin with resolution of chest discomfort. Admission Exam Per Admitting Provider Physical Exam Physical Exam: General: no distress, obese Head: normocephalic, atraumatic Eyes: PERRL, EOM's intact, conjunctiva non-injected, anicteric ENT: normal inspection external ears, nose, mucous membranes moist Neck: supple, trachea midline Lungs: clear, no respiratory distress, no wheezing/rhonchi/rales CV: RRR, no murmur, no pretibial edema Abd: normal BS, soft, non-tender Ext: no cyanosis, no calf tenderness Neuro: A&O x 3, no focal deficits noted, normal affect Skin: warm, dry Principal Diagnosis Chest Pain Abnormal Thyroid function test Discharge Data Allergies Allergy/AdvReac Type Severity Reaction Status Date / Time morphine AdvReac Severe GI SYMPTOMS Verified 10/03/21 11:29 Consultations 10/03/21 13:39 ED Decision to Admit Stat 10/03/21 14:36 Consult Cardiology Routine Hospital Course (1) Chest pain: Patient is 50-year-old female with PMH of FREDY, GERD, depression, hypot hyroidism presented to ER with C/O CP. Last night she started with chest tightness. This morning she woke up with chest tightness and discomfort to left- sided chest radiating to left arm with associated dizziness. Chest Pain ACS ruled out --Negative troponin --Stress test nonischemic --ECHO: EF 60 to 65%. Grade 1 diastolic dysfunction. No wall motion abnormality. --CXR:No active disease in the chest. --Appreciate cardiology input -Plan is to monitor blood pressure regularly and consider discussing with primary care physician for possible need for antihypertensives if needed (2) FREDY (obstructive sleep apnea): CPAP HS (3) Depression: Continue bupropion (4) Hypothyroidism: TSH low Free T4 normal Levothyroxine dose decreased today on 150 mcg daily Advised to get repeat thyroid function test in 1 week and consider following with PCP, endocrinology for further adjustment (5) GERD (gastroesophageal reflux disease): Continue PPI DVT Prophylaxis SCDs Code Status Full Code Total Time Total Time Spent Total Time Spent (In Minutes): 45 minutes Discharge Plan Discharge Items Patient Disposition: Home - Self-Care Reason For Visit: CP Discharge Diagnosis: Chest Pain Abnormal Thyroid function test Activity: Per Instructions section Exercise/Sports: Gradually increase as tolerated Non-emergency contact: Primary Care Provider Call non-emergency contact if: you have any medication questions, your symptoms worsen, your pain is concerning for you and you have a fever Follow-up/Referrals: Ansley Gaytan PA-C [Primary Care Provider] - (Date & Time 10/10/2021 11:20 AM Provider Eitan Cuba MD Department [facility] ) Diet: Heart Healthy Addtl Attending Provider Instructions: Follow up with your Primary Care physician on 10/10/2021 11:20 AM -----Monitor your blood pressure regularly and discuss with your primary care physician for possible need of starting on antihypertensives if needed. ----Get thyroid function test (TSH, Free T4) in 1 week and follow-up with your physician for further adjustment of your thyroid medication. Seek immediate medical attention if your symptoms reoccur or worsen Please take all medications as instructed on discharge list below. Please call if you have any questions or problems. You can reach a [facility] hospitalist on duty at [facility] 24 hours a day by calling [phone] Pending Studies at Discharge: No Stand-Alone Forms: My [facility], Smoking Cessation Medications and DC Order Prescriptions: New levothyroxine 150 mcg capsule 150 mcg PO DAILY Qty: 30 RF: 0 Continued ascorbic acid (vitamin C) [Vitamin C] 500 mg Tablet 500 mg PO DAILY RF: 0 lansoprazole 30 mg capsule,delayed release(DR/EC) 30 mg PO PM RF: 0 cholecalciferol (vitamin D3) [Vitamin D3] 25 mcg (1,000 unit) Capsule 1,000 mcg PO DAILY RF: 0 bupropion HCl 300 mg tablet extended release 24 hr 300 mg PO DAILY RF: 0 Women's Multivitamin 18 mg iron-400 mcg-500 mg Tablet 1 tab PO DAILY RF: 0 cetirizine [Zyrtec] 10 mg Tablet 10 mg PO DAILY RF: 0 bupropion HCl 150 mg tablet extended release 24 hr 150 mg PO DAILY RF: 0 Discontinued levothyroxine [Levoxyl] 175 mcg tablet 175 mcg PO DAILY RF: 0 Discharge Orders: Discharge Order (Routine); Ordered 10/04/21 Ordered By: Brandon Robles Admission Data Admit Date/Time: 10/03/21 13:46 Attending Provider: Brandon Robles Admit Provider: Brandon Robles Primary Care Provider: Ansley Gaytan Other Providers: Ben Mays ; Brandon Robles
--- NOTE | 2021-10-04 14:26 | Electrocardiogram Report ---
Test Reason : Blood Pressure : / mmHG Vent. Rate : 075 BPM Atrial Rate : 075 BPM P-R Int : 162 ms QRS Dur : 104 ms QT Int : 412 ms P-R-T Axes : 029 044 034 degrees QTc Int : 460 ms Normal sinus rhythm Normal ECG When compared with ECG of 03-OCT-2021 12:14, No significant change was found Confirmed by Herson Fleming ([id number]) on 10/04/2021 2:25:44 PM Referred By: REFERRED SELF Confirmed By:Sergey Fleming
[2021-10-05] MEDS ORDERED: LEVOTHYROXINE SODIUM 125 MCG TABLET PO SCH (06:30)
== END 2021-10-04 14:23 | disposition home or self-care (01) ==
LOC: EDINP 10:53 → ED 10:53 → 2N 16:33